=== PATIENT | male | born 1965 | race Caucasian/White ===

== ENCOUNTER 2017-01-12 15:24 | Emergency (ER) | payer OTHER ==
--- NOTE | 2017-01-12 16:03 | ER Document Report ---
ED Medical Screen (RME) - General Chief Complaint: Fall Injury Stated Complaint: FALL/RIGHT ELBOW Time Seen by Provider: 01/12/17 15:59 Notes: About 9:25 AM this morning, patient was going out of his house into his garage and he rolled his right ankle and fell hitting his right face and head. He does not think he was unconscious and had no neurologic deficits. However, soon after the fall patient had some extreme dizziness and blurry vision and then got hot and sweaty and was unresponsive for 1-2 minutes. Did not have any nausea or vomiting. Denies any neck pain. No neurologic deficits. Denies chest pain. Denies any difficulty breathing or shortness of breath. Now seems to be back to normal. History of hyperthyroid. TRAVEL OUTSIDE OF THE [place] IN LAST 30 DAYS: No - Related Data Allergies/Adverse Reactions: No Known Allergies Allergy (Verified 01/12/17 15:39) Past Medical History - Social History Chew tobacco use (# tins/day): No Frequency of alcohol use: None Drug Abuse: None Renal/ Medical History: Denies: Hx Peritoneal Dialysis Past Surgical History: Reports: Hx Orthopedic Surgery - knee Physical Exam - Vital signs Vitals: Temp Pulse Resp BP Pulse Ox 99 F 74 16 122/70 97 01/12/17 15:39 01/12/17 15:39 01/12/17 15:39 01/12/17 15:39 01/12/17 15:39 Course - Vital Signs Vital signs: Temp Pulse Resp BP Pulse Ox 99 F 74 16 122/70 97 01/12/17 15:39 01/12/17 15:39 01/12/17 15:39 01/12/17 15:39 01/12/17 15:39
--- NOTE | 2017-01-12 16:22 | RADIOLOGY REPORT (SQ) ---
EXAM DESCRIPTION: CT HEAD WITHOUT; CT FACIAL AREA WITHOUT COMPLETED DATE/TIME: 01/12/2017 4:13 pm REASON FOR STUDY: Fell and hit right head and face, vasovagal? ; Fell and hit right face COMPARISON: None. TECHNIQUE: Noncontrasted images through the brain and facial bones and orbits windowed for brain, dinero bdural, bone and soft tissue. Additional coronal and sagittal reconstructed images reviewed. All im ages stored on PACS. All CT scanners at this facility use dose modulation, iterative reconstruction, and/or weight based d osing when appropriate to reduce radiation dose to as low as reasonably achievable (ALARA). [facility]: Dose Right [facility]: CareDose [facility]: Dose Right [facility]: Teradose 4D [facility]: [employer] RADIATION DOSE: CT Rad equipment meets quality standard of care and radiation dose reduction techniq ues were employed. CTDIvol: 64.6 mGy. DLP: 1163 mGy-cm.; CT Rad equipment meets quality standard of c are and radiation dose reduction techniques were employed. CTDIvol: 30.4 mGy. DLP: 587 mGy-cm. mGy. LIMITATIONS: None. FINDINGS: Brain: No hemorrhage or mass or shift or hydrocephalus or fracture. Clear paranasal sinu ses. Intact orbits. CT face: No fracture. Intact orbits. Clear paranasal sinuses. IMPRESSION: No acute abnormality of the brain or face. TECHNICAL DOCUMENTATION: JOB ID: [id number] Quality ID # [id number]: Final reports with documentation of one or more dose reduction techniques (e.g., Au tomated exposure control, adjustment of the mA and/or kV according to patient size, use of iterative reconstruction technique) 2010 [employer]- All Rights Reserved
--- NOTE | 2017-01-12 16:22 | RADIOLOGY REPORT (SQ) ---
EXAM DESCRIPTION: CT HEAD WITHOUT; CT FACIAL AREA WITHOUT COMPLETED DATE/TIME: 01/12/2017 4:13 pm REASON FOR STUDY: Fell and hit right head and face, vasovagal? ; Fell and hit right face COMPARISON: None. TECHNIQUE: Noncontrasted images through the brain and facial bones and orbits windowed for brain, dinero bdural, bone and soft tissue. Additional coronal and sagittal reconstructed images reviewed. All im ages stored on PACS. All CT scanners at this facility use dose modulation, iterative reconstruction, and/or weight based d osing when appropriate to reduce radiation dose to as low as reasonably achievable (ALARA). [facility]: Dose Right [facility]: CareDose [facility]: Dose Right [facility]: Teradose 4D [facility]: [employer] RADIATION DOSE: CT Rad equipment meets quality standard of care and radiation dose reduction techniq ues were employed. CTDIvol: 64.6 mGy. DLP: 1163 mGy-cm.; CT Rad equipment meets quality standard of c are and radiation dose reduction techniques were employed. CTDIvol: 30.4 mGy. DLP: 587 mGy-cm. mGy. LIMITATIONS: None. FINDINGS: Brain: No hemorrhage or mass or shift or hydrocephalus or fracture. Clear paranasal sinu ses. Intact orbits. CT face: No fracture. Intact orbits. Clear paranasal sinuses. IMPRESSION: No acute abnormality of the brain or face. TECHNICAL DOCUMENTATION: JOB ID: [id number] Quality ID # [id number]: Final reports with documentation of one or more dose reduction techniques (e.g., Au tomated exposure control, adjustment of the mA and/or kV according to patient size, use of iterative reconstruction technique) 2010 [employer]- All Rights Reserved
--- NOTE | 2017-01-12 17:00 | RADIOLOGY REPORT (SQ) ---
EXAM DESCRIPTION: ANKLE RIGHT AP/LATERAL COMPLETED DATE/TIME: 01/12/2017 4:48 pm REASON FOR STUDY: Fell and twisted right ankle COMPARISON: None. NUMBER OF VIEWS: Three views right ankle. LIMITATIONS: None. FINDINGS: There is no acute or significant bone, joint or soft tissue abnormality. OTHER: No other significant finding. IMPRESSION: NORMAL STUDY. TECHNICAL DOCUMENTATION: JOB ID: [id number]
--- NOTE | 2017-01-12 17:01 | RADIOLOGY REPORT (SQ) ---
EXAM DESCRIPTION: ELBOW RIGHT OVER 2 VIEWS COMPLETED DATE/TIME: 01/12/2017 4:48 pm REASON FOR STUDY: Fell and hit elbow COMPARISON: None. NUMBER OF VIEWS: Four views right elbow. LIMITATIONS: None. FINDINGS: Joint effusion. Nondisplaced fracture deformity through the radial head and neck. No sub luxation or dislocation. OTHER: No other significant finding. IMPRESSION: Right radial head/ neck nondisplaced fracture. TECHNICAL DOCUMENTATION: JOB ID: [id number]
--- NOTE | 2017-01-12 17:45 | ER Document Report ---
ED General - General Chief Complaint: Fall Injury Stated Complaint: FALL/RIGHT ELBOW Time Seen by Provider: 01/12/17 15:59 TRAVEL OUTSIDE OF THE [place] IN LAST 30 DAYS: No - HPI Patient complains to provider of: Fall Notes: Patient coming in for evaluation of a fall. Patient states he was walking on steps when he fell hitting his face on seen in. Patient states afterwards entering the house he did have an episode where he passed out. Patient otherwise are now is neurologically intact according to the patient is acting like his normal self. Patient complains of right-sided face pain right elbow pain or ankle pain. Patient did have x-rays performed in triage. Denies any other past medical history - Related Data Allergies/Adverse Reactions: No Known Allergies Allergy (Verified 01/12/17 15:39) Past Medical History - Social History Smoking Status: Unknown if Ever Smoked Chew tobacco use (# tins/day): No Frequency of alcohol use: None Drug Abuse: None Family History: Reviewed & Not Pertinent Patient has suicidal ideation: No Patient has homicidal ideation: No Renal/ Medical History: Denies: Hx Peritoneal Dialysis Past Surgical History: Reports: Hx Orthopedic Surgery - knee Review of Systems - Review of Systems Constitutional: No symptoms reported EENT: No symptoms reported Cardiovascular: No symptoms reported Respiratory: No symptoms reported Gastrointestinal: No symptoms reported Genitourinary: No symptoms reported Male Genitourinary: No symptoms reported Musculoskeletal: Other - Right ankle right elbow right face pain Skin: No symptoms reported Hematologic/Lymphatic: No symptoms reported Neurological/Psychological: No symptoms reported Physical Exam - Vital signs Vitals: Temp Pulse Resp BP Pulse Ox 99 F 74 16 122/70 97 01/12/17 15:39 01/12/17 15:39 01/12/17 15:39 01/12/17 15:39 01/12/17 15:39 Interpretation: Normal - General General appearance: Appears well, Alert - HEENT Head: Normocephalic, Atraumatic Pupils: PERRL - Respiratory Respiratory status: No respiratory distress - Cardiovascular Murmur: No - Extremities General upper extremity: Normal inspection, Nontender, Normal color, Normal temperature, Other - Mild swelling of the elbow. Patient's range of motion limited due to pain General lower extremity: Normal inspection, Nontender, Normal color, Normal ROM , Normal temperature, Normal weight bearing. No: Dorothy's sign - Neurological Neuro grossly intact: Yes Cognition: Normal Ad Coma Scale Eye Opening: Spontaneous [place] Coma Scale Verbal: Oriented [place] Coma Scale Motor: Obeys Commands Ad Coma Scale Total: 15 Sensory: Normal - Psychological Associated symptoms: Normal affect, Normal mood - Skin Skin Temperature: Warm Skin Moisture: Dry Skin Color: Normal Course - Re-evaluation Re-evalutation: 01/12/17 18:19 CT scan ankle x-rays are negative patient does have a radial head fracture. Did discuss with orthopedics will have the patient follow-up with him tomorrow. Patient was placed in a splint will discharge home - Vital Signs Vital signs: Temp Pulse Resp BP Pulse Ox 99 F 74 16 122/70 97 01/12/17 15:39 01/12/17 15:39 01/12/17 15:39 01/12/17 15:39 01/12/17 15:39 Procedures - Immobilization Right Elbow Immobilizer type: Sugar tong, Sling Performed by: PCT Post-Proc Neuro Vasc Exam: Normal Alignment checked and good: Yes Discharge - Discharge Clinical Impression: Radial head fracture, closed Qualifiers: Encounter type: initial encounter Fracture alignment: nondisplaced Laterality: right Qualified Code(s): S52.124A - Nondisplaced fracture of head of right radius, initial encounter for closed fracture Condition: Good Disposition: HOME, SELF-CARE Instructions: Head Injury Precautions ([facility]), Post-Concussion Syndrome ([facility]), Radial Head Fracture ([facility]) Additional Instructions: Please follow-up with orthopedic clinic tomorrow please call them early in the morning to set up an appointment in the morning. Prescriptions: Hydrocodone Bit/Acetaminophen [Hydrocodon-Acetaminophen 5-325] 1 each PO Q6 #20 tablet Referrals: BRIANNA ALEXIS MD [ACTIVE STAFF] - Follow up tomorrow
[2017-01-12] MEDS ORDERED: HYDROCODONE/ACETAMINOPHEN 5-325 MG 6 TAB/DSPK PO PRN (18:10)
[2017-01-12 18:23] VITALS: BP 122/72
== END 2017-01-12 18:30 | disposition home or self-care (01) ==
LOC: ER 15:24
PROC: 2W38X1Z Immobilization of Right Upper Extremity using Splint (ICD-10-PCS; principal; 2017-01-12)
DX: S52.124A Nondisplaced fracture of head of right radius, initial encounter for closed fracture (principal); W19.XXXA Unspecified fall, initial encounter
CPT/HCPCS: 70450; 70486; 99284

== ENCOUNTER 2019-04-11 10:52 | Emergency (ER) | payer BC, OTHER ==
[2019-04-11] MEDS ORDERED: LIDOCAINE 5% (700 MG) TRANSDERMAL ADH..PATCH TP ONE (11:30)
[2019-04-11] MEDS ORDERED: DIAZEPAM 5 MG TABLET PO ONE (11:30)
[2019-04-11] MEDS ORDERED: KETOROLAC TROMETHAMINE 60 MG/2 ML SDV IM ONE (11:30)
[2019-04-11] MEDS ORDERED: DEXAMETHASONE SOD PHOS INJ 10 MG/1 ML VIAL IM ONE (11:31)
--- NOTE | 2019-04-11 11:31 | ER Document Report ---
HPI - HPI Time Seen by Provider: 04/11/19 11:25 Notes: This is a 53-year-old male presenting to the emergency department with acute low back pain. Patient reports this pain started several days ago, he denies any specific injury. Patient reports pain in the low back that does radiate across into the bilateral lumbar paraspinous muscles and down slightly into his left buttock. He denies any saddle anesthesia, fevers, has had not had any urinary retention or urinary or fecal incontinence. Patient has tried taking some naproxen and Percocet that he had at home with minimal relief. Past Medical History - General Information source: Patient - Social History Smoking Status: Never Smoker Frequency of alcohol use: None Drug Abuse: None Family History: Reviewed & Not Pertinent - Medical History Medical History: Negative Renal/ Medical History: Denies: Hx Peritoneal Dialysis Past Surgical History: Reports: Hx Orthopedic Surgery - knee Vertical Provider Document - CONSTITUTIONAL Notes: PHYSICAL EXAMINATION: GENERAL: Well-appearing, well-nourished and in no acute distress. HEAD: Atraumatic, normocephalic. EYES: Pupils equal round extraocular movements intact, conjunctiva are normal. ENT: Nares patent NECK: Normal range of motion LUNGS: No respiratory distress Musculoskeletal: Normal range of motion, tenderness to palpation of the lumbar paraspinous area, no vertebral tenderness, step-off or deformity. NEUROLOGICAL: Normal speech. PSYCH: Normal mood, normal affect. SKIN: Warm, Dry, normal turgor, no rashes or lesions noted. - INFECTION CONTROL TRAVEL OUTSIDE OF THE [place] IN LAST 30 DAYS: No Course - Re-evaluation Re-evalutation: Patient denies any red flag symptoms for any life-threatening etiology. Likely musculoskeletal strain. Will defer imaging as patient has not had any direct trauma or injury. Conservative measures were implemented here in the emergency department to include Toradol, Decadron, Lidoderm and Valium. Patient reports feeling much improved after these medications were given. Patient will be discharged home in stable condition at this time. Strict ED return precautions were discussed, patient verbalized understanding and agreement with same. Discharge - Discharge Clinical Impression: Lumbar back pain Condition: Stable Disposition: HOME, SELF-CARE Additional Instructions: You have been seen in the Emergency Department (ED) today for back pain. Your workup and exam have not shown any acute abnormalities and you are likely suffering from muscle strain or possible problems with your discs, but there is no treatment that will fix your symptoms at this time. Please take ibuprofen 600 mg every 6 hours for the next 2 to 3 days. Please take the medication that has been prescribed as directed. Do not take the Valium and Flexeril together as they are both muscle relaxants. You should also purchase a local lidocaine cream such as "aspercreme with lidocaine" and use per bottle instructions to the affected area. Apply heat to the area as often as you are able. Continue to keep active and avoid prolonged periods of bed rest. Please follow up with your doctor as soon as possible regarding today's ED visit and your back pain. Return to the ED for worsening back pain, fever, weakness or numbness of either leg, or if you develop either (1) an inability to urinate or have bowel movements, or (2) loss of your ability to control your bathroom functions (if you start having "accidents"), or if you develop other new symptoms that concern you. Prescriptions: Cyclobenzaprine HCl [Flexeril 10 mg Tablet] 10 mg PO TID #30 tablet Diazepam [Valium 5 mg Tablet] 5 mg PO QIDP PRN #10 tablet PRN Reason: Referrals: CHANTALE BRADFORD MD [Primary Care Provider] - Follow up as needed
[2019-04-11 13:03] VITALS: BP 126/85
== END 2019-04-11 13:03 | disposition home or self-care (01) ==
LOC: ER 10:52
DX: M54.5 Low back pain (principal)
CPT/HCPCS: 99283; 96372; J1885; J1100